=== PATIENT | male | born 1970 | race Asian ===

== ENCOUNTER 2025-01-13 11:27 | Emergency (ER) | payer OTHER ==
[~2025-01-13] VITALS: Ht 172.7 cm; Wt 72.6 kg
[2025-01-13] MEDS: MORPHINE SULFATE 4 MG/ML INJ (FOR IV/IM USE) IV ONE (11:49)
[2025-01-13 13:00] VITALS: O2SAT 99
[2025-01-13] MEDS: KETAMINE HCL 50 MG/ML 10ML IV ONE (13:14)
[2025-01-13] MEDS: ONDANSETRON HCL 4MG/2ML INJ IV ONE ×2 (13:32→14:04)
[2025-01-13] MEDS ORDERED: OXYC-100 MT (13:44)
[2025-01-13] MEDS ORDERED: IBUP-1455 MT (13:44)
[2025-01-13] MEDS ORDERED: ONDA4TAB50 MT (13:45)
[2025-01-13 15:15] VITALS: BP 124/81; PULSE 63; RESP 14; TEMP 37; O2SAT 96
== END 2025-01-13 15:42 | disposition home or self-care (01) ==
LOC: ER 11:47
DX: S82.892A Other fracture of left lower leg, initial encounter for closed fracture (principal); V18.0XXA Pedal cycle driver injured in noncollision transport accident in nontraffic accident, initial encounter; Y93.89 Activity, other specified; Y92.89 Other specified places as the place of occurrence of the external cause; Y99.8 Other external cause status
CPT/HCPCS: 73562; 73600; 73610; 27762; 96374; 96375; 96376; 99152; 99285; J3490; J2405; J2270; Z7610 ×2; A6449; A4606